=== PATIENT | male | born 1955 | race African-American/Black ===

== ENCOUNTER 2017-06-04 20:05 | Emergency (ER) | payer MEDICARE ==
[~2017-06-04] VITALS: Ht 182.9 cm; Wt 101.1 kg
[~2017-06-04 20:05] MED LIST: ALLO300 PO; ATEN1TAB74 PO; ERGO50000 PO; GLIP10 PO; INDO75CA PO; KCL20 PO; LIPI20TA PO; LISI10 PO; LORTA5 PO; METF500 PO; NOVOLOGSS SQ
[2017-06-04 20:11] VITALS: BP 137/74; PULSE 87; RESP 18; TEMP 98.2; O2SAT 99
[2017-06-04 20:28] VITALS: PULSE 84; RESP 20; TEMP 98.8; O2SAT 97
[2017-06-04] MEDS ORDERED: NITROGLYCERIN 2% OINT 1 GM PACKET TOP ONE (20:30)
[2017-06-04] MEDS ORDERED: MORPHINE SULFATE 4 MG/ML INJ IV PUSH ONE (20:30)
[2017-06-04] MEDS ORDERED: ASPIRIN 81 MG CHEW TAB PO ONE (20:30)
[2017-06-04] MEDS ORDERED: SODIUM CHLORIDE 0.9% FLUSH 10 ML FLUSH IVF PRN (20:30)
[2017-06-04] MEDS ORDERED: ONDANSETRON HCL 4 MG/2 ML VIAL IV PUSH ONE (20:30)
--- NOTE | 2017-06-04 20:30 | PD ---
HPI Chief Complaint: Respiratory Symptoms Time Seen by Provider: 20:16 Travel History International Travel<30 days: No Contact w/Intl Traveler<30days: No Traveled to known affect area: No History of Present Illness HPI The patient is a 61-year-old [place] male who presents to the emergency department for chest pain or shortness of breath. The patient notes shortness of breath over the last several days, worse at night with lying supine, improved with sitting upright. He does note a dry and nonproductive cough that occasionally probe produce yellow sputum. He denies any history of asthma, COPD , or congestive heart failure. He denies any exertional symptoms. The patient developed lower chest pain and upper epigastric abdominal pain earlier today associated with his shortness of breath. He denies any nausea, vomiting, or diaphoresis. The patient denies any known history of coronary artery disease, however, does have a history of hypertension, hyperlipidemia and gout. The patient's primary physician is Dr. Roman [facility] with [facility]. Symptoms are moderate, worse with lying supine, there are no current alleviating factors except for sitting upright. PFSH Past Medical History Arthritis: Yes (RA) Asthma: No Autoimmune Disease: No Blood Disorders: Yes (GI BLEEDING) Anxiety: No Depression: No Heart Rhythm Problems: No Cancer: No Cardiovascular Problems: Yes (HTN) High Cholesterol: No Chemotherapy: No Congestive Heart Failure: Yes Cirrhosis: Yes COPD: No Cerebrovascular Accident: No Diabetes: Yes Diminished Hearing: No Endocrine: Yes Gastrointestinal Disorders: Yes GERD: Yes Gout: Yes Genitourinary: No Headaches: Yes Hepatitis: No Hiatal Hernia: No Hypertension: Yes Immune Disorder: No Kidney Stones: No Musculoskeletal: Yes (GOUT) Neurologic: No Psychiatric: No Reproductive: No Respiratory: Yes Radiation Therapy: No Renal Failure: No Seizures: No Shingles: No Sickle Cell Disease: No Sleep Apnea: No Thyroid Disease: No Ulcer: No Past Surgical History Abdominal Surgery: No Body Medical Devices: LEFT HIP Cardiac Surgery: No Ear Surgery: No Endocrine Surgery: No Eye Surgery: No Genitourinary Surgery: No Gynecologic Surgery: No Oral Surgery: No Pacemaker: No Thoracic Surgery: No Other Surgery: Yes (removal of gout ) Social History Alcohol Use: No Tobacco Use: No Substance Use: No Allergies-Medications (Allergen,Severity, Reaction): Coded Allergies: iodine (Unverified Allergy, Intermediate, MAKES GOUT FLARE UP, 06/04/17) potassium iodide (Unverified Allergy, Intermediate, MAKES GOUT FLARE UP, ) povidone-iodine (Unverified Allergy, Intermediate, MAKES GOUT FLARE UP, 06/04/17) shellfish derived (Unverified Allergy, Intermediate, MAKES GOUT FLARE UP, 06/04/17) sodium iodide (Unverified Allergy, Intermediate, MAKES GOUT FLARE UP, ) sodium iodide (Unverified Allergy, Intermediate, MAKES GOUT FLARE UP, ) Reported Meds & Prescriptions Reported Meds & Active Scripts Active Novolog Insulin Supplemental Scale (Insulin Aspart) 100 /Ml Inj 1 Units SQ DIRECTED 30 Days Prinivil 10 mg (Lisinopril) 10 Mg Tab 20 Mg PO Q12HR Glucophage 500 mg (Metformin HCl) 500 Mg Tab 1,000 Mg PO BIDPC Glucotrol 10 Mg Tab (Glipizide) 10 Mg Tab 10 Mg PO BID@08,17 Reported Kcl 20 Meq Tab (Potassium Chloride) 20 Meq Tabcr 20 Meq PO DAILY Vitamin D / Drisdol 50,000 Units (Ergocalciferol) 50,000 Units Cap 1 Cap PO Q7D Indomethacin Er (Indomethacin) 75 Mg Cap 75 Mg PO BID PRN Lipitor 20 Mg Tab (Atorvastatin Calcium) 20 Mg Tab 20 Mg PO HS Hydrocodone/Acetaminophen 5 mg/325 mg 1 Tab 1 Tab PO TID PRN Zyloprim 300 Mg Tab (Allopurinol) 300 Mg Tab 300 Mg PO BID Tenormin (Atenolol) 50 Mg Tab 50 Mg PO BID Review of Systems Except as stated in HPI: all other systems reviewed are Neg General / Constitutional: No: Fever HENT: No: Lightheadedness Cardiovascular: Positive: Chest Pain or Discomfort, No: Dyspnea on exertion Respiratory: Positive: Cough, Shortness of Breath, Orthopnea, No: Pleuritic Pain Gastrointestinal: Positive: Abdominal Pain (epigastric and lower chest pain), No: Nausea, Vomiting Musculoskeletal: Positive: Other (history of gouty arthritis) Neurologic: No: Dizziness Physical Exam Narrative GENERAL: Awake, alert, pleasant 61-year-old male who appears his stated age and is in no acute respiratory distress. SKIN: Focused skin assessment warm/dry. Gouty arthritic changes noted to the elbows, hands, and feet. HEAD: Atraumatic. Normocephalic. EYES: No injection or drainage. ENT: No nasal bleeding or discharge. Mucous membranes pink and moist. NECK: Trachea midline. No JVD. CARDIOVASCULAR: Regular rate and rhythm. No murmur appreciated. Heart rate in the 80s. RESPIRATORY: No accessory muscle use. Few crackles in the bases bilaterally. Anterior chest wall is tender to palpation. GASTROINTESTINAL: Abdomen soft, mild epigastric tenderness but no guarding or rigidity. MUSCULOSKELETAL: No obvious deformities. No clubbing. No cyanosis. No edema. Gouty arthritic changes noted to the hands, feet, and elbow. NEUROLOGICAL: Awake and alert. No obvious cranial nerve deficits. Motor grossly within normal limits. Normal speech. Nonfocal. Oriented 4. PSYCHIATRIC: Appropriate mood and affect; insight and judgment normal. Data Data Last Documented VS Vital Signs Date Time Temp Pulse Resp B/P (MAP) Pulse Ox O2 Delivery O2 Flow Rate FiO2 06/04/17 20:33 80 152/84 (106) 06/04/17 20:28 97 2.00 06/04/17 20:28 98.8 20 Nasal Cannula Orders Orders Electrocardiogram (06/04/17 20:21) B-Type Natriuretic Peptide (06/04/17 20:21) Ckmb (Isoenzyme) Profile (06/04/17 20:21) Complete Blood Count With Diff (06/04/17 20:21) Comprehensive Metabolic Panel (06/04/17 20:21) Magnesium (Mg) (06/04/17 20:21) Prothrombin Time / Inr (Pt) (06/04/17 20:21) Act Partial Throm Time (Ptt) (06/04/17 20:21) Troponin I (06/04/17 20:21) Lipase (06/04/17 20:21) Chest, Single Ap (06/04/17 20:21) Ecg Monitoring (06/04/17 20:21) Bilateral Bp Monitoring (06/04/17 20:21) Iv Access Insert/Monitor (06/04/17 20:21) Oximetry (06/04/17 20:21) Oxygen Administration (06/04/17 20:21) Aspirin Chew (Aspirin Chew) (06/04/17 20:30) Nitroglycerin 2% Oint (Nitroglycerin 2% (06/04/17 20:30) Sodium Chloride 0.9% Flush (Ns Flush) (06/04/17 20:30) Ondansetron Inj (Zofran Inj) (06/04/17 20:30) Morphine Inj (Morphine Inj) (06/04/17 20:45) CKMB (06/04/17 20:45) CKMB% (06/04/17 20:45) Labs Laboratory Tests Test 06/04/17 20:45 White Blood Count 4.3 TH/MM3 Red Blood Count 3.72 MIL/MM3 Hemoglobin 11.6 GM/DL Hematocrit 35.3 % Mean Corpuscular Volume 94.9 FL Mean Corpuscular Hemoglobin 31.1 PG Mean Corpuscular Hemoglobin Concent 32.8 % Red Cell Distribution Width 17.9 % Platelet Count 192 TH/MM3 Mean Platelet Volume 7.4 FL Neutrophils (%) (Auto) 66.2 % Lymphocytes (%) (Auto) 24.8 % Monocytes (%) (Auto) 6.9 % Eosinophils (%) (Auto) 1.3 % Basophils (%) (Auto) 0.8 % Neutrophils # (Auto) 2.8 TH/MM3 Lymphocytes # (Auto) 1.1 TH/MM3 Monocytes # (Auto) 0.3 TH/MM3 Eosinophils # (Auto) 0.1 TH/MM3 Basophils # (Auto) 0.0 TH/MM3 CBC Comment DIFF FINAL Differential Comment Prothrombin Time 10.7 SEC Prothromb Time International Ratio 1.1 RATIO Activated Partial Thromboplast Time 23.6 SEC Blood Urea Nitrogen 11 MG/DL Creatinine 1.40 MG/DL Random Glucose 204 MG/DL Total Protein 7.4 GM/DL Albumin 2.6 GM/DL Calcium Level 8.2 MG/DL Magnesium Level 1.1 MG/DL Alkaline Phosphatase 145 U/L Aspartate Amino Transf (AST/SGOT) 173 U/L Alanine Aminotransferase (ALT/SGPT) 56 U/L Total Bilirubin 0.8 MG/DL Sodium Level 136 MEQ/L Potassium Level 3.3 MEQ/L Chloride Level 100 MEQ/L Carbon Dioxide Level 25.0 MEQ/L Anion Gap 11 MEQ/L Estimat Glomerular Filtration Rate 62 ML/MIN Total Creatine Kinase 394 U/L Creatine Kinase MB 3.7 NG/ML Creatine Kinase MB % 0.9 % Troponin I LESS THAN 0.02 NG/ML B-Type Natriuretic Peptide 119 PG/ML Lipase 142 U/L [facility] Medical Decision Making Medical Screen Exam Complete: Yes Emergency Medical Condition: Yes Medical Record Reviewed: Yes Interpretation(s) EKG reveals sinus rhythm with occasional supraventricular premature complex. No significant ST elevations or depressions noted. Chest x-ray reveals cardiomegaly. Minimal basilar atelectasis. Last Impressions Chest X-Ray 06/04/172020 Signed Impressions: Service Date/Time: Sunday, June 04, 2017 20:48 - CONCLUSION: 1. Cardiomegaly. Minimal basilar atelectasis. João Mina MD Laboratory Tests Test 06/04/17 20:45 White Blood Count 4.3 TH/MM3 Red Blood Count 3.72 MIL/MM3 Hemoglobin 11.6 GM/DL Hematocrit 35.3 % Mean Corpuscular Volume 94.9 FL Mean Corpuscular Hemoglobin 31.1 PG Mean Corpuscular Hemoglobin Concent 32.8 % Red Cell Distribution Width 17.9 % Platelet Count 192 TH/MM3 Mean Platelet Volume 7.4 FL Neutrophils (%) (Auto) 66.2 % Lymphocytes (%) (Auto) 24.8 % Monocytes (%) (Auto) 6.9 % Eosinophils (%) (Auto) 1.3 % Basophils (%) (Auto) 0.8 % Neutrophils # (Auto) 2.8 TH/MM3 Lymphocytes # (Auto) 1.1 TH/MM3 Monocytes # (Auto) 0.3 TH/MM3 Eosinophils # (Auto) 0.1 TH/MM3 Basophils # (Auto) 0.0 TH/MM3 CBC Comment DIFF FINAL Differential Comment Prothrombin Time 10.7 SEC Prothromb Time International Ratio 1.1 RATIO Activated Partial Thromboplast Time 23.6 SEC Blood Urea Nitrogen 11 MG/DL Creatinine 1.40 MG/DL Random Glucose 204 MG/DL Total Protein 7.4 GM/DL Albumin 2.6 GM/DL Calcium Level 8.2 MG/DL Magnesium Level 1.1 MG/DL Alkaline Phosphatase 145 U/L Aspartate Amino Transf (AST/SGOT) 173 U/L Alanine Aminotransferase (ALT/SGPT) 56 U/L Total Bilirubin 0.8 MG/DL Sodium Level 136 MEQ/L Potassium Level 3.3 MEQ/L Chloride Level 100 MEQ/L Carbon Dioxide Level 25.0 MEQ/L Anion Gap 11 MEQ/L Estimat Glomerular Filtration Rate 62 ML/MIN Total Creatine Kinase 394 U/L Creatine Kinase MB 3.7 NG/ML Creatine Kinase MB % 0.9 % Troponin I LESS THAN 0.02 NG/ML B-Type Natriuretic Peptide 119 PG/ML Lipase 142 U/L Differential Diagnosis Differential diagnosis includes acute coronary syndrome, congestive heart failure, pleural effusion, pulmonary edema, pancreatitis, GERD, esophageal spasm , hypertensive urgency. Narrative Course IV was established, labs are drawn and sent, and the patient was placed on cardiac telemetry monitoring and continuous pulse oximetry monitoring. EKG was ordered and interpreted. Chest x-ray was obtained. The patient was administered aspirin, Nitropaste, morphine, Zofran, and was monitored in the emergency department. The patient's heart rate is normal and there is no hypoxia, I doubt pulmonary embolism. The patient's chest x-ray revealed cardiomegaly with minimal basilar atelectasis, no significant effusion. I reviewed the patient's EMR, he had an admission in 2013 for hypertensive urgency at that time with findings of congestive heart failure on chest x-ray and a BNP of just over 500. It was thought the patient had flash pulmonary edema at that time secondary his hypertension and he did have an echocardiogram at 2013 which revealed an EF of 60-65% with mild thickening of the wall, possibly secondary to hypertension. The patient was reevaluated at 9:39 PM, his pain had improved. I had a discussion with the patient regarding 23 hour observation in the chest pain Center. I advised the patient he should have observation for serial cardiac enzymes and possibly a stress test in the morning. However, the patient does not want to stay in the hospital, states he will follow-up with his primary physician at [facility], Dr. Lewis, as soon as possible for an outpatient stress test. I advised the patient to take a baby aspirin daily and to follow-up with his primary physician as soon as possible. Return at anytime is symptoms worsen or progress or if he changes his mind for admission to the chest pain Center. Diagnosis Primary Impression: Chest pain Qualified Codes: R07.9 - Chest pain, unspecified Patient Instructions: General Instructions Additional Instructions: Please provide a patient a copy of his x-ray results, EKG results, lab results at discharge. Follow-up with your primary physician as soon as possible to schedule an outpatient stress test. Return at any time if symptoms worsen or progress. Med/Other Pt SpecificInfo: Other (take a baby aspirin daily) Disposition: 01 DISCHARGE HOME Condition: Stable Derek Ramos MD Jun 04, 2017 20:30
[2017-06-04 20:31] VITALS: BP 128/73; PULSE 82
[2017-06-04 20:33] VITALS: BP 152/84; PULSE 80
[2017-06-04] MEDS ORDERED: MORPHINE SULFATE 2 MG/ML INJ IV PUSH ONE (20:45)
[2017-06-04 20:57] LABS: AUTOMATED NEUTROPHIL # 2.8 TH/MM3 (1.8-7.7); BASOPHIL % 0.8 % (0.0-2.0); EOSINOPHIL # 0.1 TH/MM3 (0-0.4); EOSINOPHIL % 1.3 % (0.0-4.0); HEMATOCRIT 35.3 % (39.0-51.0); HEMOGLOBIN 11.6 GM/DL (13.0-17.0); LYMPH % 24.8 % (9.0-44.0); LYMPHOCYTE # 1.1 TH/MM3 (1.0-4.8); MEAN CELL VOLUME 94.9 FL (80.0-100.0); MEAN CORPUSCULAR HEMOGLOBIN 31.1 PG (27.0-34.0); MEAN CORPUSCULAR HGB CONC 32.8 % (32.0-36.0); MEAN PLATELET VOLUME 7.4 FL (7.0-11.0); MONO % 6.9 % (0.0-8.0); MONOCYTE # 0.3 TH/MM3 (0-0.9); NEUT % 66.2 % (16.0-70.0); PLATELET COUNT 192 TH/MM3 (150-450); RED BLOOD COUNT 3.72 MIL/MM3 (4.50-5.90); RED CELL DISTRIBUTION WIDTH 17.9 % (11.6-17.2); WHITE BLOOD COUNT 4.3 TH/MM3 (4.0-11.0)
[2017-06-04 21:08] LABS: CHLORIDE 100 MEQ/L (98-107); SODIUM (NA) 136 MEQ/L (136-145)
[2017-06-04 21:12] LABS: ALBUMIN 2.6 GM/DL (3.4-5.0); BLOOD UREA NITROGEN 11 MG/DL (7-18); CALCIUM 8.2 MG/DL (8.5-10.1); GLUCOSE,RANDOM 204 MG/DL (74-106); INTERNATIONAL NORMALIZED RATIO 1.1 RATIO; LIPASE 142 U/L (73-393); MAGNESIUM 1.1 MG/DL (1.5-2.5); PROTHROMBIN TIME - PATIENT 10.7 SEC (9.8-11.6)
[2017-06-04 21:15] LABS: ALT (GPT) 56 U/L (12-78); AST (GOT) 173 U/L (15-37); GLOMERULAR FILTRATION RATE 62 ML/MIN (>89)
--- NOTE | 2017-06-04 21:15 | RADRPT ---
EXAM DATE/TIME: 06/04/2017 20:48 [facility] COMPARISON: CHEST SINGLE AP, September 09, 2015, 5:04. INDICATIONS : Chest pain. MEDICAL HISTORY : Hypertension. Congestive heart failure SURGICAL HISTORY : None. ENCOUNTER: Initial ACUITY: 1 day PAIN SCORE: 7/10 LOCATION: Bilateral chest FINDINGS: Cardiomegaly present. Probable basilar atelectasis. No significant effusion. No pneumothorax. Mildly tortuous aorta. CONCLUSION: 1. Cardiomegaly. Minimal basilar atelectasis. João Mina MD on June 04, 2017 at 21:12 Board Certified Radiologist. This report was verified electronically.
[2017-06-04 21:16] LABS: TOTAL BILIRUBIN ADULT 0.8 MG/DL (0.2-1.0)
[2017-06-04 21:17] LABS: TOTAL PROTEIN 7.4 GM/DL (6.4-8.2)
[2017-06-04 21:18] LABS: ALKALINE PHOSPHATASE 145 U/L (45-117)
[2017-06-04 21:20] LABS: TROPONIN I LESS THAN 0.02 NG/ML (0.02-0.05)
[2017-06-04 21:30] VITALS: BP 141/72; PULSE 79; RESP 20; O2SAT 99
[2017-06-04] MEDS ORDERED: NOVOLOGP2 SQ (22:23)
[2017-06-04] MEDS ORDERED: ATOR20TA15 PO (22:23)
[2017-06-04] MEDS ORDERED: METF500T PO (22:23)
[2017-06-04] MEDS ORDERED: INDO25CA PO (22:23)
[2017-06-04] MEDS ORDERED: LISI-515 PO (22:23)
[2017-06-04] MEDS ORDERED: GLIP10TA6 PO (22:23)
[2017-06-04] MEDS ORDERED: VITA500012 PO (22:23)
[2017-06-04] MEDS ORDERED: POTA1TAB77 PO (22:23)
[2017-06-04] MEDS ORDERED: HYDR-3516 PO (22:23)
[2017-06-04] MEDS ORDERED: ATEN50TA PO (22:23)
[2017-06-04] MEDS ORDERED: ALLO300T2 PO (22:23)
--- NOTE | 2017-06-05 12:38 | EKG ---
Date Performed: 06/04/2017 Time Performed: 20:22:29 PTAGE: 61 years EKG: Sinus rhythm WITH OCCASIONAL SUPRAVENTRICULAR PREMATURE COMPLEXES BORDERLINE ECG Compared to PREVIOUS TRACING , QRS voltage is less prominent. PREVIOUS TRACIN03/25/2015 19.47 DOCTOR: Luigi Puga Interpretating Date/Time 06/05/2017 12:36:30
== END 2017-06-04 22:42 | disposition home or self-care (01) ==
LOC: PHED 20:05
DX: R07.9 Chest pain, unspecified (principal); R06.02 Shortness of breath; R05 Cough; M10.9 Gout, unspecified; R10.13 Epigastric pain; M06.9 Rheumatoid arthritis, unspecified; I10 Essential (primary) hypertension; E11.9 Type 2 diabetes mellitus without complications; I11.0 Hypertensive heart disease with heart failure; R94.31 Abnormal electrocardiogram [ECG] [EKG]
CPT/HCPCS: 71045; 80053; 82550; 82552; 83690; 83735; 83880; 84484; 85025; 85610; 85730; 93005; 96374; 96375; 99285; J2270; J2405

== ENCOUNTER 2017-10-17 20:58 | Observation (INO) | payer MEDICARE ==
[~2017-10-17 20:58] MED LIST changes: -ALLO300 PO; +ALLO300T2 PO; -ATEN1TAB74 PO; +ATEN50TA PO; +ATOR20TA15 PO; -ERGO50000 PO; -GLIP10 PO; +GLIP10TA6 PO; +HYDR-3516 PO; +INDO25CA PO; -INDO75CA PO; -KCL20 PO; -LIPI20TA PO; +LISI-515 PO; -LISI10 PO; -LORTA5 PO; -METF500 PO; +METF500T PO; +NOVOLOGP2 SQ; -NOVOLOGSS SQ; +POTA1TAB77 PO; +VITA500012 PO
[2017-10-17 21:05] VITALS: BP 135/90; PULSE 93; RESP 16; TEMP 98.6; O2SAT 96
[2017-10-17 21:15] VITALS: BP 159/92; PULSE 91; RESP 18; O2SAT 99
[2017-10-17] MEDS ORDERED: SODIUM CHLORIDE 0.9% FLUSH 10 ML FLUSH IVF PRN (21:30)
--- NOTE | 2017-10-17 21:37 | PD ---
HPI Chief Complaint: Respiratory Distress Time Seen by Provider: 21:16 Travel History International Travel<30 days: No Contact w/Intl Traveler<30days: No Traveled to known affect area: No History of Present Illness HPI 62-year-old male presents to the emergency department for evaluation of shortness of breath, chest pain, and epigastric abdominal pain for approximately 1.5 weeks. He also states he has been unable to eat for the past 1.5 weeks. Patient does state that he drinks half a pint of alcohol daily. He states he has been doing this for the past year. Patient denies any fevers or chills. No vomiting. He reports history of gout, hypertension, diabetes. He denies history of CHF, COPD, asthma. However, according chart, he does have history of CHF. Patient denies exacerbating or alleviating factors. Moderate severity. He denies any nausea or vomiting. He denies any recent surgery or travel. No leg edema. No hemoptysis. No history DVT or PE PFSH Past Medical History Arthritis: Yes (RA) Asthma: No Autoimmune Disease: No Blood Disorders: Yes (GI BLEEDING) Anxiety: No Depression: No Heart Rhythm Problems: No Cancer: No Cardiovascular Problems: Yes High Cholesterol: No Chemotherapy: No Congestive Heart Failure: Yes Cirrhosis: Yes COPD: No Cerebrovascular Accident: No Diabetes: Yes Patient Takes Glucophage: Yes Diminished Hearing: No Endocrine: Yes Gastrointestinal Disorders: Yes GERD: Yes Gout: Yes Genitourinary: No Headaches: Yes Hepatitis: No Hiatal Hernia: No Hypertension: Yes Immune Disorder: No Kidney Stones: No Medical other: Yes (gout) Musculoskeletal: Yes Neurologic: No Psychiatric: No Reproductive: No Respiratory: Yes Radiation Therapy: No Renal Failure: No Seizures: No Shingles: No Sickle Cell Disease: No Sleep Apnea: No Thyroid Disease: No Ulcer: No Influenza Vaccination: No Past Surgical History Abdominal Surgery: No Body Medical Devices: LEFT HIP Cardiac Surgery: No Ear Surgery: No Endocrine Surgery: No Eye Surgery: No Genitourinary Surgery: No Gynecologic Surgery: No Neurologic Surgery: No Oral Surgery: No Pacemaker: No Thoracic Surgery: No Other Surgery: Yes (removal of gout ) Social History Alcohol Use: Yes Tobacco Use: No Substance Use: No Allergies-Medications (Allergen,Severity, Reaction): Coded Allergies: iodine (Unverified Allergy, Intermediate, MAKES GOUT FLARE UP, 10/17/17) potassium iodide (Unverified Allergy, Intermediate, MAKES GOUT FLARE UP, ) povidone-iodine (Unverified Allergy, Intermediate, MAKES GOUT FLARE UP, ) shellfish derived (Unverified Allergy, Intermediate, MAKES GOUT FLARE UP, 10/17/17) sodium iodide (Unverified Allergy, Intermediate, MAKES GOUT FLARE UP, 10/17) sodium iodide (Unverified Allergy, Intermediate, MAKES GOUT FLARE UP, 10/17) Reported Meds & Prescriptions Reported Meds & Active Scripts Active Reported K-Tab (Potassium Chloride) 8 Meq Tab 8 Meq PO BID Metformin (Metformin HCl) 500 Mg Tab 500 Mg PO BIDPC Lisinopril 20 Mg Tab 20 Mg PO Q12HR Novolog Inj (Insulin Aspart) 1,000 Unit/10 Ml Vial 0 SQ DIRECTED Sliding Scale as directed. Indomethacin 25 Mg Cap 25 Mg PO TID PRN Take with food, milk, or antacids to decrease stomach adverse effects. Hydrocodone-Acetaminophen 5-325 mg Tab 1 Tab PO Q4H PRN Glipizide 10 Mg Tab 10 Mg PO BIDAC Take 30 minutes before a meal Ergocalciferol 50,000 Unit Cap 50,000 Units PO Q7D Atorvastatin (Atorvastatin Calcium) 20 Mg Tab 20 Mg PO HS Atenolol 50 Mg Tab 50 Mg PO BID Allopurinol 300 Mg Tab 300 Mg PO BID Review of Systems Except as stated in HPI: all other systems reviewed are Neg Physical Exam Narrative GENERAL: Well-nourished, well-developed male patient, afebrile. SKIN: Focused skin assessment warm/dry. HEAD: Normocephalic. Atraumatic EYES: No scleral icterus. No injection or drainage. NECK: Supple, trachea midline. No JVD or lymphadenopathy. CARDIOVASCULAR: Regular rate and rhythm without murmurs, gallops, or rubs. Bilateral radial and pedal pulses are 2+. RESPIRATORY: Breath sounds equal bilaterally. No accessory muscle use. Lung sounds clear to auscultation. GASTROINTESTINAL: Abdomen slightly distended, tenderness to palpation of the right upper quadrant epigastric region peer MUSCULOSKELETAL: No cyanosis, or edema. BACK: Nontender without obvious deformity. No CVA tenderness. Data Data Last Documented VS Vital Signs Date Time Temp Pulse Resp B/P (MAP) Pulse Ox O2 Delivery O2 Flow Rate FiO2 10/17/17 22:06 83 18 119/75 (90) 98 Nasal Cannula 2.00 10/17/17 21:05 98.6 Orders Orders Electrocardiogram (10/17/17 21:16) B-Type Natriuretic Peptide (10/17/17 21:16) Ckmb (Isoenzyme) Profile (10/17/17 21:16) Complete Blood Count With Diff (10/17/17 21:16) Comprehensive Metabolic Panel (10/17/17 21:16) Magnesium (Mg) (10/17/17 21:16) Prothrombin Time / Inr (Pt) (10/17/17 21:16) Act Partial Throm Time (Ptt) (10/17/17 21:16) Troponin I (10/17/17 21:16) Lipase (10/17/17 21:16) Chest, Single Ap (10/17/17 21:16) Ecg Monitoring (10/17/17 21:16) Bilateral Bp Monitoring (10/17/17 21:16) Iv Access Insert/Monitor (10/17/17 21:16) Oximetry (10/17/17 21:16) Oxygen Administration (10/17/17 21:16) Sodium Chloride 0.9% Flush (Ns Flush) (10/17/17 21:30) Alcohol (Ethanol) (10/17/17 21:16) Ct Abd/Pel W/O Iv Contrast (10/17/17 ) CKMB (10/17/17 22:00) CKMB% (10/17/17 22:00) Magnesium Sulfate 1 Gm Premix (Magnesium (10/17/17 22:45) Aspirin Chew (Aspirin Chew) (10/17/17 23:00) Labs Laboratory Tests Test 10/17/17 21:20 10/17/17 22:00 White Blood Count 6.4 TH/MM3 Red Blood Count 3.46 MIL/MM3 Hemoglobin 11.1 GM/DL Hematocrit 33.6 % Mean Corpuscular Volume 97.0 FL Mean Corpuscular Hemoglobin 32.0 PG Mean Corpuscular Hemoglobin Concent 33.0 % Red Cell Distribution Width 16.6 % Platelet Count 188 TH/MM3 Mean Platelet Volume 8.4 FL Neutrophils (%) (Auto) 59.0 % Lymphocytes (%) (Auto) 26.9 % Monocytes (%) (Auto) 13.0 % Eosinophils (%) (Auto) 0.6 % Basophils (%) (Auto) 0.5 % Neutrophils # (Auto) 3.8 TH/MM3 Lymphocytes # (Auto) 1.7 TH/MM3 Monocytes # (Auto) 0.8 TH/MM3 Eosinophils # (Auto) 0.0 TH/MM3 Basophils # (Auto) 0.0 TH/MM3 CBC Comment DIFF FINAL Differential Comment B-Type Natriuretic Peptide 21 PG/ML Prothrombin Time 10.7 SEC Prothromb Time International Ratio 1.1 RATIO Activated Partial Thromboplast Time 25.0 SEC Blood Urea Nitrogen 15 MG/DL Creatinine 1.04 MG/DL Random Glucose 112 MG/DL Total Protein 6.7 GM/DL Albumin 2.5 GM/DL Calcium Level 7.9 MG/DL Magnesium Level 0.6 MG/DL Alkaline Phosphatase 118 U/L Aspartate Amino Transf (AST/SGOT) 175 U/L Alanine Aminotransferase (ALT/SGPT) 43 U/L Total Bilirubin 0.8 MG/DL Sodium Level 137 MEQ/L Potassium Level 4.6 MEQ/L Chloride Level 101 MEQ/L Carbon Dioxide Level 19.4 MEQ/L Anion Gap 17 MEQ/L Estimat Glomerular Filtration Rate 88 ML/MIN Total Creatine Kinase 229 U/L Troponin I LESS THAN 0.02 NG/ML Lipase 91 U/L Ethyl Alcohol Level LESS THAN 3 MG/DL MDM Medical Decision Making Medical Screen Exam Complete: Yes Emergency Medical Condition: Yes Medical Record Reviewed: Yes Interpretation(s) chest x-ray - CONCLUSION: 1. Compensated cardiomegaly. CT abdomen/pelvis - CONCLUSION: 1. No acute CT abnormality in the abdomen or pelvis. 2. Hepatomegaly with profound hepatic steatosis. 3. Groundglass opacities at the lung bases, presumably atelectasis. 4. Coronary artery calcifications. 5. Nonobstructing punctate calyceal calcification in the inferior pole of the right kidney. 6. Normal appendix. 7. Colonic diverticulosis without evidence for diverticulitis. Differential Diagnosis Pancreatitis versus cholecystitis versus CHF versus ACS versus pneumonia versus pneumothorax versus PE Narrative Course 62-year-old male presents to the emergency department for evaluation of shortness of breath, chest pain, epigastric abdominal pain. EKG, CBC, CMP, magnesium, BNP, CK, troponin, lipase, PTT, PT/INR, alcohol level are ordered and pending. Chest x-ray and CT abdomen/pelvis without IV contrast ordered and pending peer EKG shows sinus rhythm, heart rate 86, no acute ST changes. CBC shows no acute abnormality. CMP shows elevated shows elevated anion gap of 17, most likely due to alcohol abuse, elevated AST of 175. Magnesium is low at 0.6. BNP is 21. CK is 229. Troponin is less than 0.02. Lipase is 91. Coags are unremarkable. Alcohol level is less than 3. Chest x-ray shows compensated cardiomegaly. CT abdomen/pelvis shows no acute CT abnormality in the abdomen or pelvis; Hepatomegaly with profound hepatic steatosis; Groundglass opacities at the lung bases, presumably atelectasis; Coronary artery calcifications; Nonobstructing punctate calyceal calcification in the inferior pole of the right kidney; Normal appendix; Colonic diverticulosis without evidence for diverticulitis. Patient is given magnesium 1 g IV 2. He is given aspirin 162 mg p.o. Patient has risk factors for cardiac disease. He will be admitted to the chest pain center for further evaluation. He verbalizes agreement. Diagnosis Primary Impression: Chest pain Qualified Codes: R07.9 - Chest pain, unspecified Additional Impression: Hypomagnesemia Admitting Information Admitting Physician Requests: Beverly Briscoe October 17, 2017 21:37
[2017-10-17 21:46] LABS: AUTOMATED NEUTROPHIL # 3.8 TH/MM3 (1.8-7.7); BASOPHIL % 0.5 % (0.0-2.0); EOSINOPHIL % 0.6 % (0.0-4.0); HEMATOCRIT 33.6 % (39.0-51.0); HEMOGLOBIN 11.1 GM/DL (13.0-17.0); LYMPH % 26.9 % (9.0-44.0); LYMPHOCYTE # 1.7 TH/MM3 (1.0-4.8); MEAN PLATELET VOLUME 8.4 FL (7.0-11.0); MONOCYTE # 0.8 TH/MM3 (0-0.9); PLATELET COUNT 188 TH/MM3 (150-450); RED BLOOD COUNT 3.46 MIL/MM3 (4.50-5.90); RED CELL DISTRIBUTION WIDTH 16.6 % (11.6-17.2); WHITE BLOOD COUNT 6.4 TH/MM3 (4.0-11.0)
--- NOTE | 2017-10-17 21:53 | RADRPT ---
EXAM DATE/TIME: 10/17/2017 21:35 [facility] COMPARISON: CHEST SINGLE AP, June 04, 2017, 20:48. INDICATIONS : Chest pain MEDICAL HISTORY : Diabetes mellitus type II. Hypertension. Congestive heart failure SURGICAL HISTORY : None. ENCOUNTER: Initial ACUITY: 1 week PAIN SCORE: 3/10 LOCATION: chest FINDINGS: No new focal pleural or parenchymal opacities. Cardiac silhouette is enlarged. Remainder of exam is u nchanged. CONCLUSION: 1. Compensated cardiomegaly. Ramón Barnett MD on October 17, 2017 at 21:51 Board Certified Radiologist. This report was verified electronically.
[2017-10-17 22:06] VITALS: BP 119/75; PULSE 83; RESP 18; O2SAT 98
[2017-10-17 22:30] LABS: INTERNATIONAL NORMALIZED RATIO 1.1 RATIO; PROTHROMBIN TIME - PATIENT 10.7 SEC (9.8-11.6)
[2017-10-17 22:34] LABS: ALBUMIN 2.5 GM/DL (3.4-5.0); ALT (GPT) 43 U/L (12-78); AST (GOT) 175 U/L (15-37); BICARBONATE 19.4 MEQ/L (21.0-32.0); BLOOD UREA NITROGEN 15 MG/DL (7-18); CALCIUM 7.9 MG/DL (8.5-10.1); CHLORIDE 101 MEQ/L (98-107); CREATININE 1.04 MG/DL (0.60-1.30); GLOMERULAR FILTRATION RATE 88 ML/MIN (>89); GLUCOSE,RANDOM 112 MG/DL (74-106); MAGNESIUM 0.6 MG/DL (1.5-2.5); SODIUM (NA) 137 MEQ/L (136-145)
[2017-10-17 22:36] LABS: ALKALINE PHOSPHATASE 118 U/L (45-117); TOTAL BILIRUBIN ADULT 0.8 MG/DL (0.2-1.0); TOTAL PROTEIN 6.7 GM/DL (6.4-8.2); TROPONIN I LESS THAN 0.02 NG/ML (0.02-0.05)
--- NOTE | 2017-10-17 22:37 | RADRPT ---
EXAM DATE/TIME: 10/17/2017 22:24 [facility] COMPARISON: CT ABDOMEN & PELVIS W/O CONTRAST, March 10, 2015, 10:30. INDICATIONS : Abdominal pain. ORAL CONTRAST: No oral contrast ingested. RADIATION DOSE: 14.55 CTDIvol (mGy) MEDICAL HISTORY : Cardiovascular disease. Hypertension. Gastroesophageal reflux disease.Diabetes SURGICAL HISTORY : None. ENCOUNTER: Initial ACUITY: 1 day PAIN SCALE: 8/10 LOCATION: abdomen TECHNIQUE: Volumetric scanning of the abdomen and pelvis was performed. Using automated exposure control and ad justment of the mA and/or kV according to patient size, radiation dose was kept as low as reasonably achievable to obtain optimal diagnostic quality images. DICOM format image data is available electro nically for review and comparison. FINDINGS: LOWER LUNGS: Mild groundglass opacities at the bases. Coronary artery calcifications. LIVER: Enlarged liver. Profound diffusely decreased attenuation of the liver. No calcified gallstones. SPLEEN: Normal size without lesion. PANCREAS: Within normal limits. KIDNEYS: Kidneys are symmetrical in size. Punctate calyceal cavitation in the inferior pole of the right kidne y. No hydronephrosis. ADRENAL GLANDS: Within normal limits. VASCULAR: There is no aortic aneurysm. BOWEL/MESENTERY: Scattered colonic diverticulosis without significant inflammatory change to suggest diverticulitis. A ppendix is visualized and normal in appearance. There is a very small hiatal hernia. Small bowel loop s are normal in caliber. No free fluid or drainable fluid collections. ABDOMINAL WALL: Within normal limits. RETROPERITONEUM: There is no lymphadenopathy. BLADDER: No wall thickening or mass. REPRODUCTIVE: Within normal limits. INGUINAL: Degenerative spondylosis of the lumbar spine. Left hip arthroplasty. MUSCULOSKELETAL: Within normal limits for patient age. CONCLUSION: 1. No acute CT abnormality in the abdomen or pelvis. 2. Hepatomegaly with profound hepatic steatosis. 3. Groundglass opacities at the lung bases, presumably atelectasis. 4. Coronary artery calcifications. 5. Nonobstructing punctate calyceal calcification in the inferior pole of the right kidney. 6. Normal appendix. 7. Colonic diverticulosis without evidence for diverticulitis. Ramón Barnett MD on October 17, 2017 at 22:31 Board Certified Radiologist. This report was verified electronically.
[2017-10-17] MEDS ORDERED: ASPIRIN 81 MG CHEW TAB CHEW ONE (23:00)
[2017-10-17] MEDS ORDERED: SODIUM CHLORIDE 0.9% FLUSH 10 ML FLUSH IV FLUSH PRN (23:00)
[2017-10-17] MEDS: MAGNESIUM SULFATE 1 GM PREMIX 100 ML IV SCH ×2 (23:02→23:53)
[2017-10-17 23:54] VITALS: BP 134/78; PULSE 80; RESP 18; O2SAT 99
[2017-10-18 01:34] VITALS: BP 140/78; PULSE 86; RESP 16; TEMP 98.4; O2SAT 97
[2017-10-18 04:24] LABS: TROPONIN I LESS THAN 0.02 NG/ML (0.02-0.05)
[2017-10-18 05:33] VITALS: BP 166/90; PULSE 81; RESP 16; TEMP 97.5; O2SAT 99
[2017-10-18 06:25] LABS: TROPONIN I LESS THAN 0.02 NG/ML (0.02-0.05)
[2017-10-18 07:43] VITALS: PULSE 82
[2017-10-18] MEDS ORDERED: FLUMAZENIL 0.5 MG/5 ML VIAL IV PUSH PRN (08:00)
[2017-10-18] MEDS ORDERED: DEXTROSE 50% IN WATER 50 ML VIAL(D50) IV PUSH PRN (08:00)
[2017-10-18] MEDS ORDERED: GLUCAGON 1 MG/ML VIAL OTHER PRN (08:00)
[2017-10-18] MEDS ORDERED: LORazepam 2 MG/ML VIAL IV PUSH PRN ×4 (08:00)
[2017-10-18] MEDS ORDERED: ACETAMINOPHEN/HYDROcodone 325 MG/5 MG TAB PO PRN (08:00)
[2017-10-18] MEDS ORDERED: LORazepam 1 MG TAB PO PRN (08:00)
[2017-10-18] MEDS ORDERED: LORazepam 2 MG TAB PO PRN (08:00)
[2017-10-18 08:13] VITALS: BP 153/79; PULSE 75; RESP 16; TEMP 98.1; O2SAT 99
[2017-10-18] MEDS: INSULIN ASPART SUPPLEMENTAL SCALE SQ SCH ×2 (08:36→13:14)
[2017-10-18] MEDS ORDERED: LISINOPRIL 20 MG TAB PO SCH (09:00)
[2017-10-18] MEDS ORDERED: ATENOLOL 50 MG TAB PO SCH (09:00)
[2017-10-18] MEDS ORDERED: ERGOCALCIFEROL (VIT D2) 50,000 UNIT CAP PO SCH (09:00)
[2017-10-18] MEDS ORDERED: SODIUM CHLORIDE 0.9% FLUSH 10 ML FLUSH IV FLUSH SCH (09:00)
[2017-10-18] MEDS ORDERED: POTASSIUM CHLORIDE 8 MEQ CONTROLLED RELEASE TAB PO SCH (09:00)
[2017-10-18] MEDS ORDERED: ALLOPURINOL 300 MG TAB PO SCH (09:00)
--- NOTE | 2017-10-18 09:01 | EKG ---
Date Performed: 10/17/2017 Time Performed: 21:26:48 PTAGE: 62 years EKG: Sinus rhythm WITH SINUS ARRHYTHMIA NORMAL ECG NO CHANGE PREVIOUS TRACING : 10/17/2017 21. DOCTOR: Miles Jones Interpretating Date/Time 10/18/2017 09:00:16
--- NOTE | 2017-10-18 09:01 | EKG ---
Date Performed: 10/18/2017 Time Performed: 03:42:13 PTAGE: 62 years EKG: Sinus rhythm WITH OCCASIONAL SUPRAVENTRICULAR PREMATURE COMPLEXES VOLTAGE CRITERIA FOR LVH ABNORMAL ECG NO SIG CH RO PREVIOUS TRACING : 10/17/2017 21.26 DOCTOR: Miles Jones Interpretating Date/Time 10/18/2017 08:59:12
--- NOTE | 2017-10-18 09:03 | HHI.HP ---
[facility] Primary Care Physician Chase Samaniego MD Chief Complaint Chest pain History of Present Illness This is a 62-year-old male with history of hypertension, hyperlipidemia, diabetes, rheumatoid arthritis, gout, congestive heart failure, and alcohol abuse that presents to ED via private vehicle primarily complaining of shortness of breath and decreased appetite. Towards end the conversation he complained of chest discomfort that he states has been intermittently present for the past week and half lasting to 3 minutes at a time. Nothing in particular brings on the discomfort. States he is short of breath with the discomfort. Then states that he has had very decreased appetite for last 2 weeks. States he has had chicken broth and other soups. He points to epigastric region indicate where his discomfort is present but denies abdominal pain verbally. Has had no nausea or vomiting. Denies diarrhea or constipation. States he had a normal bowel movement last evening. Denies blood in stool. Denies recent illness. Denies recent travel. Review of Systems General: Patient denies fevers, chills, and recent travel. HEENT: Patient denies headache, sore throat, difficulty swallowing. Cardiovascular: Has the chest discomfort as mentioned above. Denies sensation of heart beating rapidly or irregularly. No syncope. Denies diaphoresis. Respiratory: He has been short of breath. Denies inspirational chest discomfort. Denies coughing wheezing or hemoptysis. GI: Complains of decreased appetite. Patient denies nausea, vomiting, diarrhea , abdominal pain, bloody stools. Musculoskeletal: Chronic arthralgias and joint edema and deformity secondary to rheumatoid arthritis and gout. Denies calf pain or edema. Neurovascular: Patient denies numbness, tingling, weakness in extremities. Denies headache. Endocrine: Denies polyuria and polydipsia. Hematologic: Denies easy bruising. Skin: Denies rash or itching. Past Family Social History Allergies: Coded Allergies: iodine (Unverified Allergy, Intermediate, MAKES GOUT FLARE UP, 10/17/17) potassium iodide (Unverified Allergy, Intermediate, MAKES GOUT FLARE UP, ) povidone-iodine (Unverified Allergy, Intermediate, MAKES GOUT FLARE UP, ) shellfish derived (Unverified Allergy, Intermediate, MAKES GOUT FLARE UP, 10/17/17) sodium iodide (Unverified Allergy, Intermediate, MAKES GOUT FLARE UP, 10/17) sodium iodide (Unverified Allergy, Intermediate, MAKES GOUT FLARE UP, 10/17) Past Medical History Hypertension, hyperlipidemia, diabetes, rheumatoid arthritis, gout, congestive heart failure. Denies known CAD and denies tobacco abuse. Past Surgical History Noncontributory. Reported Medications Reported Meds & Active Scripts Active Reported K-Tab (Potassium Chloride) 8 Meq Tab 8 Meq PO BID Metformin (Metformin HCl) 500 Mg Tab 500 Mg PO BIDPC Lisinopril 20 Mg Tab 20 Mg PO Q12HR Novolog Inj (Insulin Aspart) 1,000 Unit/10 Ml Vial 15 SQ HS Indomethacin 25 Mg Cap 25 Mg PO TID PRN Take with food, milk, or antacids to decrease stomach adverse effects. Hydrocodone-Acetaminophen 5-325 mg Tab 1 Tab PO Q4H PRN Glipizide 10 Mg Tab 10 Mg PO BIDAC Take 30 minutes before a meal Ergocalciferol 50,000 Unit Cap 50,000 Units PO Q7D Atorvastatin (Atorvastatin Calcium) 20 Mg Tab 20 Mg PO HS Atenolol 50 Mg Tab 50 Mg PO BID Allopurinol 300 Mg Tab 300 Mg PO BID Active Ordered Medications Current Medications Medications (Trade) Dose Ordered Sig/Tramaine Route Start Time Stop Time Status Last Admin (NS Flush) 2 ml UNSCH PRN IV FLUSH 10/17/17 23:00 (NS Flush) 2 ml BID IV FLUSH 10/18/17 09:00 (Zyloprim) 300 mg BID PO 10/18/17 09:00 (Tenormin) 50 mg BID PO 10/18/17 09:00 (Lipitor) 20 mg HS PO 10/18/17 21:00 (Drisdol) 50,000 units Q7D PO 10/18/17 09:00 (Prinivil) 20 mg Q12HR PO 10/18/17 09:00 (KCl) 8 meq BID PO 10/18/17 09:00 ([place] 5-325 Mg) 1 tab Q4H PRN PO 10/18/17 08:00 (D50w (Vial) Inj) 50 ml UNSCH PRN IV PUSH 10/18/17 08:00 (Glucagon Inj) 1 mg UNSCH PRN OTHER 10/18/17 08:00 (NovoLOG SUPPLEMENTAL SCALE) 1 ACHS SLIDING SCALE SQ 10/18/17 08:00 (Romazicon Inj) 0.2 mg Q1M PRN IV PUSH 10/18/17 08:00 (Ativan) 1 mg Q4H PRN PO 10/18/17 08:00 (Ativan Inj) 1 mg Q4H PRN IV PUSH 10/18/17 08:00 (Ativan) 2 mg Q2H PRN PO 10/18/17 08:00 (Ativan Inj) 2 mg Q2H PRN IV PUSH 10/18/17 08:00 (Ativan Inj) 2 mg Q1H PRN IV PUSH 10/18/17 08:00 (Ativan Inj) 2 mg Q15M PRN IV PUSH 10/18/17 08:00 Family History States his mother age 62 of a myocardial infarction. Social History States he is a lifetime non-smoker. Denies illicit drug use. States he drinks about 1/2 pint of vodka daily. Physical Exam Vital Signs Vital Signs Date Time Temp Pulse Resp B/P (MAP) Pulse Ox O2 Delivery O2 Flow Rate FiO2 10/18/17 08:13 98.1 75 16 153/79 (103) 99 10/18/17 07:43 82 10/18/17 06:31 Nasal Cannula 3.00 10/18/17 05:33 97.5 81 16 166/90 (115) 99 10/18/17 01:34 98.4 86 16 140/78 (98) 97 10/17/17 23:56 10/17/17 23:54 80 18 134/78 (96) 99 Nasal Cannula 2.00 10/17/17 22:06 83 18 119/75 (90) 98 Nasal Cannula 2.00 10/17/17 21:16 18 98 Room Air 10/17/17 21:15 91 18 159/92 (114) 99 Room Air 10/17/17 21:05 98.6 93 16 135/90 (105) 96 Physical Exam GENERAL: This is a well-nourished, well-developed patient, in no apparent distress. Patient speaks in clear complete sentences. Patient is pleasant. HEENT: Head is atraumatic and normocephalic. Neck is supple without lymphadenopathy and trachea is midline. No JVD or carotid bruits. CARDIOVASCULAR: Regular rate and rhythm without murmurs, gallops, or rubs. RESPIRATORY: Clear to auscultation. Breath sounds equal bilaterally. No wheezes , rales, or rhonchi. Chest wall is nontender. No use of accessory muscles. GASTROINTESTINAL: Abdomen is nontender, nondistended. Abdomen soft. No obvious pulsatile mass or bruit. No CVA tenderness. Strong femoral pulses bilaterally. Normal bowel sounds in all quadrants. MUSCULOSKELETAL: There are deformities to the patient's elbows, hands, knees, and feet which are chronic. No calf tenderness or edema, no Homans sign. Strong pulses in upper and lower extremities. NEUROLOGICAL: Patient is alert and oriented. Cranial nerves 2-12 are grossly intact. No focal deficits and speech is clear. SKIN: No rash and turgor is normal. Laboratory Laboratory Tests Test 10/17/17 21:20 10/17/17 22:00 10/18/17 03:30 10/18/17 05:43 White Blood Count 6.4 Red Blood Count 3.46 Hemoglobin 11.1 Hematocrit 33.6 Mean Corpuscular Volume 97.0 Mean Corpuscular Hemoglobin 32.0 Mean Corpuscular Hemoglobin Concent 33.0 Red Cell Distribution Width 16.6 Platelet Count 188 Mean Platelet Volume 8.4 Neutrophils (%) (Auto) 59.0 Lymphocytes (%) (Auto) 26.9 Monocytes (%) (Auto) 13.0 Eosinophils (%) (Auto) 0.6 Basophils (%) (Auto) 0.5 Neutrophils # (Auto) 3.8 Lymphocytes # (Auto) 1.7 Monocytes # (Auto) 0.8 Eosinophils # (Auto) 0.0 Basophils # (Auto) 0.0 CBC Comment DIFF FINAL Differential Comment B-Type Natriuretic Peptide 21 Prothrombin Time 10.7 Prothromb Time International Ratio 1.1 Activated Partial Thromboplast Time 25.0 Blood Urea Nitrogen 15 Creatinine 1.04 Random Glucose 112 Total Protein 6.7 Albumin 2.5 Calcium Level 7.9 Magnesium Level 0.6 Alkaline Phosphatase 118 Aspartate Amino Transf (AST/SGOT) 175 Alanine Aminotransferase (ALT/SGPT) 43 Total Bilirubin 0.8 Sodium Level 137 Potassium Level 4.6 Chloride Level 101 Carbon Dioxide Level 19.4 Anion Gap 17 Estimat Glomerular Filtration Rate 88 Total Creatine Kinase 229 162 154 Creatine Kinase MB 3.2 1.6 1.4 Troponin I LESS THAN 0.02 LESS THAN 0.02 LESS THAN 0.02 Lipase 91 Ethyl Alcohol Level LESS THAN 3 Result Diagram: 10/17/17211910/17/172199 Imaging Last 24 hours Impressions Chest X-Ray 10/17/172115 Signed Impressions: Service Date/Time: Tuesday, October 17, 2017 21:35 - CONCLUSION: 1. Compensated cardiomegaly. Ramón Barnett MD Course EKGs are sinus rhythm with PVCs. No significant ST segment depressions or elevations. Caprini VTE Risk Assessment Caprini VTE Risk Assessment: Mod/High Risk (score >= 2) Caprini Risk Assessment Model Point Value = 1 Point Value = 2 Point Value = 3 Point Value = 5 Age 41-60 Minor surgery BMI > 25 kg/m2 Swollen legs Varicose veins or History of unexplained or recurrent spontaneous Oral contraceptives or hormone replacement Sepsis (< 1 month) Serious lung disease, including pneumonia (< 1 month) Abnormal pulmonary function Acute myocardial infarction Congestive heart failure (< 1 month) History of inflammatory bowel disease Medical patient at bed rest Age 61-74 Arthroscopic surgery Major open surgery (> 45 min) Laparoscopic surgery (> 45 min) Malignancy Confined to bed (> 72 hours) Immobilizing plaster cast Central venous access Age >= 75 History of VTE Family history of VTE Factor V Leiden Prothrombin [id number] Lupus anticoagulant Anticardiolipin antibodies Elevated serum homocysteine Heparin-induced thrombocytopenia Other congenital or acquired thrombophilia Stroke (< 1 month) Elective arthroplasty Hip, pelvis, or leg fracture Acute spinal cord injury (< 1 month) Prophylaxis Regimen Total Risk Factor Score Risk Level Prophylaxis Regimen 0-1 Low Early ambulation 2 Moderate Order ONE of the following: *Sequential Compression Device (SCD) *Heparin 5000 units SQ BID 3-4 Higher Order ONE of the following medications: *Heparin 5000 units SQ TID *Enoxaparin/Lovenox 40 mg SQ daily (WT < 150 kg, CrCl > 30 mL/min) *Enoxaparin/Lovenox 30 mg SQ daily (WT < 150 kg, CrCl > 10-29 mL/min) *Enoxaparin/Lovenox 30 mg SQ BID (WT < 150 kg, CrCl > 30 mL/min) AND/OR *Sequential Compression Device (SCD) 5 or more Highest Order ONE of the following medications: *Heparin 5000 units SQ TID (Preferred with Epidurals) *Enoxaparin/Lovenox 40 mg SQ daily (WT < 150 kg, CrCl > 30 mL/min) *Enoxaparin/Lovenox 30 mg SQ daily (WT < 150 kg, CrCl > 10-29 mL/min) *Enoxaparin/Lovenox 30 mg SQ BID (WT < 150 kg, CrCl > 30 mL/min) AND *Sequential Compression Device (SCD) Assessment and Plan Assessment and Plan * Chest pain: Patient has had serial cardiac enzymes and EKGs for ruling out purposes. He will be seen by Dr. Jones of cardiology in the chest pain center. He will undergo a Lexiscan. He would be discharged home if stress test is nonischemic with instructions to follow-up with PCP. Return to ED for interval issues. * Hypertension: Continue medication. * Hyperlipidemia: Continue medication. * Diabetes: Continues meds after discharge. Patient will be on sliding scale insulin coverage while in chest pain center. He should follow diabetic diet. * Alcohol abuse: Patient has been counseled importance of reducing his alcohol intake. Patient is stable at this time. He is agreeable to this plan. Christiano Almanza October 18, 2017 09:03
[2017-10-18] MEDS ORDERED: REGADENOSON INJ 0.4 MG/5 ML SYR ONE (09:32)
--- NOTE | 2017-10-18 09:56 | PD.CARD.PN ---
Subjective Subjective Remarks The patient was presented by the physician young adult librarian and the records were reviewed. The patient was then seen and examined personally. I am in agreement with the documentation as recorded. The plan of care was discussed and agreed upon. Objective Medications Current Medications Medications (Trade) Dose Ordered Sig/Tramaine Route Start Time Stop Time Status Last Admin (NS Flush) 2 ml UNSCH PRN IV FLUSH 10/17/17 23:00 (NS Flush) 2 ml BID IV FLUSH 10/18/17 09:00 (Zyloprim) 300 mg BID PO 10/18/17 09:00 (Tenormin) 50 mg BID PO 10/18/17 09:00 (Lipitor) 20 mg HS PO 10/18/17 21:00 (Drisdol) 50,000 units Q7D PO 10/18/17 09:00 (Prinivil) 20 mg Q12HR PO 10/18/17 09:00 (KCl) 8 meq BID PO 10/18/17 09:00 ([place] 5-325 Mg) 1 tab Q4H PRN PO 10/18/17 08:00 (D50w (Vial) Inj) 50 ml UNSCH PRN IV PUSH 10/18/17 08:00 (Glucagon Inj) 1 mg UNSCH PRN OTHER 10/18/17 08:00 (NovoLOG SUPPLEMENTAL SCALE) 1 ACHS SLIDING SCALE SQ 10/18/17 08:00 (Romazicon Inj) 0.2 mg Q1M PRN IV PUSH 10/18/17 08:00 (Ativan) 1 mg Q4H PRN PO 10/18/17 08:00 (Ativan Inj) 1 mg Q4H PRN IV PUSH 10/18/17 08:00 (Ativan) 2 mg Q2H PRN PO 10/18/17 08:00 (Ativan Inj) 2 mg Q2H PRN IV PUSH 10/18/17 08:00 (Ativan Inj) 2 mg Q1H PRN IV PUSH 10/18/17 08:00 (Ativan Inj) 2 mg Q15M PRN IV PUSH 10/18/17 08:00 Vital Signs / I&O Vital Signs Date Time Temp Pulse Resp B/P (MAP) Pulse Ox O2 Delivery O2 Flow Rate FiO2 10/18/17 08:13 98.1 75 16 153/79 (103) 99 10/18/17 07:43 82 10/18/17 06:31 Nasal Cannula 3.00 10/18/17 05:33 97.5 81 16 166/90 (115) 99 10/18/17 01:34 98.4 86 16 140/78 (98) 97 10/17/17 23:56 10/17/17 23:54 80 18 134/78 (96) 99 Nasal Cannula 2.00 10/17/17 22:06 83 18 119/75 (90) 98 Nasal Cannula 2.00 10/17/17 21:16 18 98 Room Air 10/17/17 21:15 91 18 159/92 (114) 99 Room Air 10/17/17 21:05 98.6 93 16 135/90 (105) 96 I/O 10/17/17 10/17/17 10/17/17 10/18/17 10/18/17 10/18/17 07:00 15:00 23:00 07:00 15:00 23:00 Intake Total 100 ml Balance 100 ml Intake IV Total 100 ml Physical Exam Chest is clear with no RWR CV RSR with occasional extra beats. NO GRM Abd soft nontender and no masses Laboratory Laboratory Tests Test 10/17/17 21:20 10/17/17 22:00 10/18/17 03:30 10/18/17 05:43 White Blood Count 6.4 TH/MM3 Red Blood Count 3.46 MIL/MM3 Hemoglobin 11.1 GM/DL Hematocrit 33.6 % Mean Corpuscular Volume 97.0 FL Mean Corpuscular Hemoglobin 32.0 PG Mean Corpuscular Hemoglobin Concent 33.0 % Red Cell Distribution Width 16.6 % Platelet Count 188 TH/MM3 Mean Platelet Volume 8.4 FL Neutrophils (%) (Auto) 59.0 % Lymphocytes (%) (Auto) 26.9 % Monocytes (%) (Auto) 13.0 % Eosinophils (%) (Auto) 0.6 % Basophils (%) (Auto) 0.5 % Neutrophils # (Auto) 3.8 TH/MM3 Lymphocytes # (Auto) 1.7 TH/MM3 Monocytes # (Auto) 0.8 TH/MM3 Eosinophils # (Auto) 0.0 TH/MM3 Basophils # (Auto) 0.0 TH/MM3 CBC Comment DIFF FINAL Differential Comment B-Type Natriuretic Peptide 21 PG/ML Prothrombin Time 10.7 SEC Prothromb Time International Ratio 1.1 RATIO Activated Partial Thromboplast Time 25.0 SEC Blood Urea Nitrogen 15 MG/DL Creatinine 1.04 MG/DL Random Glucose 112 MG/DL Total Protein 6.7 GM/DL Albumin 2.5 GM/DL Calcium Level 7.9 MG/DL Magnesium Level 0.6 MG/DL Alkaline Phosphatase 118 U/L Aspartate Amino Transf (AST/SGOT) 175 U/L Alanine Aminotransferase (ALT/SGPT) 43 U/L Total Bilirubin 0.8 MG/DL Sodium Level 137 MEQ/L Potassium Level 4.6 MEQ/L Chloride Level 101 MEQ/L Carbon Dioxide Level 19.4 MEQ/L Anion Gap 17 MEQ/L Estimat Glomerular Filtration Rate 88 ML/MIN Total Creatine Kinase 229 U/L 162 U/L 154 U/L Creatine Kinase MB 3.2 NG/ML 1.6 NG/ML 1.4 NG/ML Troponin I LESS THAN 0.02 NG/ML LESS THAN 0.02 NG/ML LESS THAN 0.02 NG/ML Lipase 91 U/L Ethyl Alcohol Level LESS THAN 3 MG/DL Imaging Last 24 hours Impressions Chest X-Ray 10/17/172115 Signed Impressions: Service Date/Time: Tuesday, October 17, 2017 21:35 - CONCLUSION: 1. Compensated cardiomegaly. Ramón Barnett MD Assessment and Plan Assessment and Plan He has ruled out for ACS and proceeding with nuclear stress test. Miles Jones MD October 18, 2017 09:56
[2017-10-18] MEDS ORDERED: cloNIDine HCL 0.1 MG TAB PO PRN (10:00)
--- NOTE | 2017-10-18 11:18 | RADRPT ---
EXAM DATE/TIME: 10/18/2017 09:16 [facility] COMPARISON: No previous studies available for comparison. INDICATIONS : Mid chest pain for two weeks. Angina. DOSE: 26.1 mCi Tc99m Myoview at stress. 8.5 mCi Tc99m Myoview at rest. 0.4 mg Lexiscan STRESS SYMPTOMS: Shortness of breath. EJECTION FRACTION: 61% MEDICAL HISTORY : Hypertension. Congestive heart failure. SURGICAL HISTORY : Left hip. ENCOUNTER: Initial ACUITY: 2 weeks PAIN SCALE: 7/10 LOCATION: Midsternal chest TECHNIQUE: The patient underwent pharmacologic stress with infusion of prescribed dose. Continuous ECG tracing was monitored during stress. Gated SPECT imaging was performed after stress and conventional SPECT i maging was performed at rest. The examination was performed on a SPECT/CT scanner, both attenuation and non-corrected datasets were reviewed. FINDINGS: DISTRIBUTION: The maximum perfused segment at stress is in the anterior wall. PERFUSION STUDY: A fixed perfusion abnormality is identified in the lateral periapical region the left ventricle. Ther e are no stress-induced areas of reversible perfusion abnormality. GATED STUDY: Dyskinetic motion is identified in the lateral apical region. Wall motion is otherwise well preserved . Ejection fraction remains within normal limits. CONCLUSION: 1. Abnormal periapical perfusion with dyskinetic wall motion most characteristic of a small area of i nfarction. 2. No evidence of stress-induced perfusion abnormality. 3. Ejection fraction remains within normal limits. RISK CATEGORY: Low (<1% Annual Mortality Rate) Camron Perez MD on October 18, 2017 at 11:11 Board Certified Radiologist. This report was verified electronically.
[2017-10-18 11:20] VITALS: BP 157/86; PULSE 86; RESP 20; TEMP 98; O2SAT 98
--- NOTE | 2017-10-18 11:30 | HHI.DCPOC ---
Discharge Care Plan Diagnosis: (1) Chest pain (2) Hypertension (3) Hyperlipidemia (4) DM (diabetes mellitus) (5) Alcohol abuse (6) Hepatomegaly (7) Hepatic steatosis (8) Hypomagnesemia (9) Elevated LFTs (10) Gout Goals to Promote Your Health * To prevent worsening of your condition and complications * To maintain your health at the optimal level Directions to Meet Your Goals Take your medications as prescribed Follow your dietary instruction Follow activity as directed Keep your appointments as scheduled Take your immunizations and boosters as scheduled If your symptoms worsen call your PCP, if no PCP go to Urgent Care Center or Emergency Room Smoking is Dangerous to Your Health. Avoid second hand smoke Call the 24-hour hour crisis hotline for domestic abuse at Christiano Almanza October 18, 2017 11:30
[2017-10-18] MEDS ORDERED: ATORVASTATIN 20 MG TAB PO SCH (21:00)
== END 2017-10-18 14:22 | disposition home or self-care (01) ==
LOC: NEPE 20:58 → NEDA 22:52 → NEPFCDU 10-18 00:06
DX: R07.89 Other chest pain (principal); R06.02 Shortness of breath; R63.0 Anorexia; E83.42 Hypomagnesemia; I49.3 Ventricular premature depolarization; R94.31 Abnormal electrocardiogram [ECG] [EKG]; I11.0 Hypertensive heart disease with heart failure; I50.9 Heart failure, unspecified; E78.5 Hyperlipidemia, unspecified; E11.9 Type 2 diabetes mellitus without complications; F10.10 Alcohol abuse, uncomplicated; M06.9 Rheumatoid arthritis, unspecified; K74.60 Unspecified cirrhosis of liver; K21.9 Gastro-esophageal reflux disease without esophagitis; K76.0 Fatty (change of) liver, not elsewhere classified; R16.0 Hepatomegaly, not elsewhere classified; K57.30 Diverticulosis of large intestine without perforation or abscess without bleeding; R91.8 Other nonspecific abnormal finding of lung field; Z79.899 Other long term (current) drug therapy; Z79.84 Long term (current) use of oral hypoglycemic drugs
CPT/HCPCS: 71045; 74176; 78452; 80053; 80307; 82550; 82552; 82948; 83690; 83735; 83880; 84484; 85025; 85610; 85730; 93005; 93017; 96365; 96372; 99285; A9502; G0378; J1815; J2785; J3475